=== PATIENT | female | born 1935 | race Caucasian/White ===

== ENCOUNTER → 2017-05-31 | Emergency (ER) | payer MEDICARE, OTHER ==
[~2017-05-31] VITALS: Ht 170.2 cm; Wt 78.6 kg
[~2017-05-31] MED LIST: ACET100V5 CORPAK; ACET600C5 PO; ASPI-1265 PO; ATOR40TA PO; CEPH500C5 PO; CHOL3000 PO; FISH1CAP15 PO; FURO-150 PO; HYDROcodone/acetaminophen 10/325mg tab PO ONE; LACT1CAP65 PO; LISI-604 PO
[2017-05-31 13:10] VITALS: BP 135/63
== END | disposition home or self-care (01) ==
LOC: ER 11:30
DX: M79.671 Pain in right foot (principal); E78.00 Pure hypercholesterolemia, unspecified; I10 Essential (primary) hypertension; Z98.890 Other specified postprocedural states; Z96.651 Presence of right artificial knee joint; Z86.718 Personal history of other venous thrombosis and embolism; Z79.82 Long term (current) use of aspirin; Z79.899 Other long term (current) drug therapy
CPT/HCPCS: 73630; 99284

== ENCOUNTER 2017-10-08 09:56 | Outpatient (CLI) | payer MEDICARE, OTHER ==
[~2017-10-08] VITALS: Ht 172.7 cm; Wt 79.4 kg
[~2017-10-08 09:56] MED LIST changes: -HYDROcodone/acetaminophen 10/325mg tab PO ONE
[2017-10-08] MEDS ORDERED: albuterol 2.5 MG/3 ML nebule NEB PRN (10:45)
[2017-10-08 10:56] LABS: TOTAL HEMOGLOBIN 12.4 G/dl (12.0-16.0)
== END 2017-10-08 23:59 | disposition home or self-care (01) ==
LOC: RT 09:56
PROVIDERS: ATTEND Internal Medicine Pulmonary Disease
DX: R06.02 Shortness of breath (principal); I10 Essential (primary) hypertension; J45.909 Unspecified asthma, uncomplicated
CPT/HCPCS: 85018; 94060; 94640; 94727; 94729

== ENCOUNTER 2017-10-11 08:49 | Outpatient (CLI) | payer MEDICARE, OTHER | END 2017-10-11 23:59 | disposition home or self-care (01) | LOC: RT 08:49 | PROVIDERS: ATTEND Internal Medicine Pulmonary Disease | DX: J45.909 Unspecified asthma, uncomplicated (principal); R06.02 Shortness of breath; M19.90 Unspecified osteoarthritis, unspecified site; I10 Essential (primary) hypertension | CPT/HCPCS: 94618 ==

== ENCOUNTER 2019-04-24 11:13 | Emergency (ER) | payer MEDICARE, OTHER ==
[~2019-04-24] VITALS: Ht 172.7 cm; Wt 75.0 kg
[~2019-04-24 11:13] MED LIST changes: -CEPH500C5 PO
[2019-04-24 12:19] VITALS: BP 96/65
[2019-04-24] MEDS ORDERED: predniSONE 20 mg tablet PO ONE (12:30)
[2019-04-24] MEDS ORDERED: ipratropium/albuterol 3ml nebule NEB ONE (12:30)
[2019-04-24 12:53] LABS: BASOPHILS % (AUTO) 0.2 % (0-1); EOSINOPHILS % (AUTO) 0 % (0-6); HEMOGLOBIN 11.4 g/dl (12.0-16.0); LYMPHOCYTES # (AUTO) 0.8 X10'3 (1.1-4.8); LYMPHOCYTES % (AUTO) 6.8 % (21-51); MEAN CORPUSCULAR HEMOGLOBIN 29.2 PG (27.0-31.0); MEAN CORPUSCULAR HGB CONC 34.6 g/dL (33.0-36.5); MEAN CORPUSCULAR VOLUME 84.3 FL (78-98); MEAN PLATELET VOLUME 7.6 FL (7.4-10.4); MONOCYTES # (AUTO) 0.9 X10'3 (0-0.9); MONOCYTES % (AUTO) 7.1 % (2-12); NEUTROPHILS # (AUTO) 10.6 X10'3 (1.8-7.7); NEUTROPHILS % (AUTO) 85.9 % (42-75); PLATELET COUNT 210 X10'3 (140-440); RED BLOOD COUNT 3.91 X10'6 (4.20-5.60); RED CELL DISTRIBUTION WIDTH 15.3 % (11.5-14.5); WHITE BLOOD COUNT 12.4 X10'3 (4.5-11.0)
[2019-04-24 13:06] LABS: PARTIAL THROMBOPLASTIN TIME 29 SECONDS (22-32)
[2019-04-24 13:28] LABS: ALANINE AMINOTRANSFERASE 20 U/L (12-78); ALBUMIN 3.4 G/DL (3.4-5.0); ALBUMIN/GLOBULIN RATIO 1.1 (1.1-1.5); ALKALINE PHOSPHATASE 49 IU/L (46-116); ANION GAP 9 (8-16); ASPARTATE AMINO TRANSFERASE 22 U/L (10-37); BILIRUBIN,TOTAL 1.1 MG/DL (0.1-1.0); BLOOD UREA NITROGEN 28 MG/DL (7-18); BUN/CREATININE RATIO 17.8 (6.6-38.0); CALCIUM 8.7 MG/DL (8.5-10.1); CHLORIDE 103 MMOL/L (99-107); CREATININE 1.57 MG/DL (0.40-0.90); GLUCOSE 109 MG/DL (70-104); POTASSIUM 4.4 MMOL/L (3.5-5.1); SODIUM 140 MMOL/L (135-145); TOTAL CARBON DIOXIDE 28.2 MMOL/L (24-32); TOTAL PROTEIN 6.5 G/DL (6.4-8.2); eGFR 31 ML/MIN
[2019-04-24] MEDS ORDERED: PRED20TA PO (13:46)
[2019-04-24] MEDS ORDERED: AZIT250T83 PO (13:46)
== END 2019-04-24 14:18 | disposition home or self-care (01) ==
LOC: ER 11:14
DX: J20.9 Acute bronchitis, unspecified (principal); J45.901 Unspecified asthma with (acute) exacerbation; E78.00 Pure hypercholesterolemia, unspecified; I10 Essential (primary) hypertension; Z98.890 Other specified postprocedural states; Z79.82 Long term (current) use of aspirin; Z79.899 Other long term (current) drug therapy
CPT/HCPCS: 36415; 71045; 80053; 83880; 85025; 85610; 85730; 93005; 94640; 99284; J7512; 94760

== ENCOUNTER 2020-07-07 17:16 | Emergency (ER) | payer MEDICARE, OTHER ==
[~2020-07-07] VITALS: Ht 172.7 cm; Wt 79.5 kg
[~2020-07-07 17:16] MED LIST changes: -LISI-604 PO; +LISI-790 PO
[2020-07-07 18:01] VITALS: BP 135/71
[2020-07-07] MEDS ORDERED: TETanus/Pertussis (Acell)/Diphther VAC/PF (Tdap-Adult) 0.5ml syringe IMVAC ONE (19:00)
== END 2020-07-07 19:47 | disposition home or self-care (01) ==
LOC: ER 17:16
DX: S09.90XA Unspecified injury of head, initial encounter (principal); E78.00 Pure hypercholesterolemia, unspecified; I10 Essential (primary) hypertension; Z20.3 Contact with and (suspected) exposure to rabies; Z98.890 Other specified postprocedural states; Z72.89 Other problems related to lifestyle; Z79.82 Long term (current) use of aspirin; Z79.899 Other long term (current) drug therapy; W19.XXXA Unspecified fall, initial encounter; Y93.89 Activity, other specified; Y92.89 Other specified places as the place of occurrence of the external cause; Y99.8 Other external cause status
CPT/HCPCS: 70450; 90471; 90715; 99284